=== PATIENT | male | born 1955 | race Caucasian/White ===

== ENCOUNTER 2016-10-04 16:26 | Inpatient (IN) | payer BC ==
[~2016-10-04] VITALS: Ht 188 cm; Wt 110.3 kg
[~2016-10-04 16:26] MED LIST: DIOV160T9 PO; METO50TA11 PO; TAMS5CAP PO
[2016-10-04 16:27] VITALS: BP 155/92; PULSE 105; RESP 20; TEMP 98.2; O2SAT 94
--- NOTE | 2016-10-04 16:31 | PD ---
Physical Exam Time Seen by Provider: 16:29 Narrative 61yo M sent by PCP to be admitted for alcohol withdrawal. Last drank Tuesday. +increased heart rate, sweating, jitteriness. Denies vomiting. Patient seen in triage. VS reviewed. Awaiting bed placement. Data Data Last Documented VS Vital Signs Date Time Temp Pulse Resp B/P Pulse Ox O2 Delivery O2 Flow Rate FiO2 10/04/16 16:27 98.2 105 20 155/92 94 Room Air MDM Supervised Visit with RITA: Simran Garcia Oct 04, 2016 16:31
[2016-10-04] MEDS ORDERED: SODIUM CHLOR 0.9% 1000 ML INJ 1,000 ML IV SCH (17:33)
--- NOTE | 2016-10-04 17:41 | PD ---
HPI Chief Complaint: Alcohol/Drug Intoxication Time Seen by Provider: 17:35 Travel History International Travel<30 days: No Contact w/Intl Traveler<30days: No Traveled to known affect area: No History of Present Illness HPI 61- year old male presents to the ED for detox. The patient reports that he drinks one quart of vodka daily, with his last drink two days ago. The patient reports he had diarrhea yesterday, but denies any nausea, vomiting, constipation , headaches, lightheadedness, blurry vision, auditory/visual hallucinations. He reports he has never tried to detox before. The patient denies any smoking or drug use. He denies any pain or suicidal ideation. Denies any pain. Patient went to see his doctor today who told to come here to get admitted and further evaluated. I did review the patient's medical record he was seen by one of the residents who recommended that he comes here to get evaluated. PFSH Social History Alcohol Use: Yes Tobacco Use: No Substance Use: No Allergies-Medications (Allergen,Severity, Reaction): Coded Allergies: Penicillin (Verified Adverse Reaction, Intermediate, Rash, 10/04/16) Uncoded Allergies: steroids (Allergy, Severe, Anaphylaxis, 08/07/12) Reported Meds & Prescriptions Reported Meds & Active Scripts Active Metoprolol Succinate ER 24 HR (Metoprolol Succinate) 50 Mg Tab 50 Mg PO DAILY Diovan Hct (Valsartan-Hydrochlorothiazide) 160-25 Mg Tab 2 Tab PO DAILY Flomax (Tamsulosin HCl) 0.4 Mg Cap 0.4 Mg PO HS Review of Systems General / Constitutional: No: Fever, Chills, Weight Gain, Weight Loss, Other Eyes: No: Diploplia, Blurred Vision, Photophobia, Drainage, Redness, Foreign Body Sensation, Pain, Tearing, Blind Spots, Visual changes, Blindness, Other HENT: No: Headaches, Vertigo, Lightheadedness, Sore Throat, Rhinitis, Rhinorrhea, Congestion, Nosebleed, Neck Stiffness, Neck Pain, Masses, Gingival Bleeding, Dental Difficulties, Ear Discharge, Earache, Other Cardiovascular: No: Chest Pain or Discomfort, Palpitations, Irregular Rhythm, Tachycardia, Diaphoresis, Syncope, Dyspnea on exertion, Varicosities, Edema, Cyanosis, Varicosities, Phlebitis, Claudication, Other Respiratory: No: Cough, Shortness of Breath, Wheezing, Sneezing, Orthopnea, Hemoptysis, Stridor, Night Sweats, Pleuritic Pain, Other Gastrointestinal: Positive: Diarrhea, No: Nausea, Vomiting, Abdominal Pain, Hematemesis, Hematochezia, Constipation, Changes in Bowel Habits, Indigestion, Dysphagia, Loss of Appetite, Other Genitourinary: No: Urgency, Frequency, Dysuria, Nocturia, Hematuria, Decreased Urinary Output, Oliguria, Hesitancy, Dribbling, Incontinence, Pelvic Pain, Flank Pain, Dyspareunia, Discharge, Dysmenorrhea, Menorrhagia, Metorrhagia, Vaginal Bleeding, Other Musculoskeletal: No: Myalgias, Arthralgias, Limited ROM, Weakness, Cramping, Edema, Pain, Atrophy, Other Skin: No Rash, No Itching, No Dryness, No Lumps, No Hives, No Change in Pigmentation, No Change in nails, No Alopecia, No Lesions, No Breast Lumps, No Breast Tenderness, No Breast Swelling, No Other Neurologic: No: Weakness, Dizziness, Syncope, Focal Abnormalities, Coordination Problem, Tremor, Ataxia, Headache, Change in Mentation, Slurred Speech, Paresthesia, Incontinence, Seizures, Sensory Disturbance, Other Psychiatric: Positive: Substance Abuse (Alcohol), No: Anxiety, Depression, Suicidal Ideations, Disorder of Thought, Mood Disorder, Homicidal Ideation, Other Endocrine: No: Heat Intolerance, Cold Intolerance, Polyuria, Polydipsia, Other Hematologic/Lymphatic: No: Easy Bruising, Lymph Node Enlargement, Other Physical Exam Narrative GENERAL: No acute distress. SKIN: Warm and dry. HEAD: Atraumatic. Normocephalic. EYES: Pupils equal and round. No scleral icterus. No injection or drainage. ENT: No nasal bleeding or discharge. Mucous membranes pink and moist. Tongue is midline, no uvula deviation. NECK: Trachea midline. No JVD. CARDIOVASCULAR: Regular rate and rhythm. No S3, S4, murmurs, rubs, gallops, or clicks. RESPIRATORY: No accessory muscle use. Clear to auscultation. Breath sounds equal bilaterally. GASTROINTESTINAL: Abdomen soft, non-tender, nondistended. Hepatic and splenic margins not palpable. MUSCULOSKELETAL: Extremities without clubbing, cyanosis, or edema. No obvious deformities. Full range of motion of the upper and lower extremities bilaterally. 2+ pulses bilaterally. Slight tremor noted on the upper extremities bilaterally. NEUROLOGICAL: Awake and alert. No obvious cranial nerve deficits. Motor grossly within normal limits. Five out of 5 muscle strength in the arms and legs. Normal speech. PSYCHIATRIC: Appropriate mood and affect; insight and judgment normal. Data Data Last Documented VS Vital Signs Date Time Temp Pulse Resp B/P Pulse Ox O2 Delivery O2 Flow Rate FiO2 10/04/16 16:27 98.2 105 20 155/92 94 Room Air Orders Complete Blood Count With Diff (10/04/16 17:29) Comprehensive Metabolic Panel (10/04/16 17:29) Magnesium (Mg) (10/04/16 17:29) Iv Access Insert/Monitor (10/04/16:29) Drug Screen, Random Urine (10/04/16:29) Alcohol (Ethanol) (10/04/16:29) Sodium Chlor 0.9% 1000 Ml Inj (Ns 1000 M (10/04/16 17:33) Alcohol Withdrawal Asmt-Ciwa ONCE (10/04/16 18:14) Ondansetron Inj (Zofran Inj) (10/04/16 18:15) Flumazenil Inj (Romazicon Inj) (10/04/16 18:15) Lorazepam (Ativan) (10/04/16 18:15) Lorazepam Inj (Ativan Inj) (10/04/16 18:15) Lorazepam (Ativan) (10/04/16 18:15) Lorazepam Inj (Ativan Inj) (10/04/16 18:15) Lorazepam Inj (Ativan Inj) (10/04/16 18:15) Lorazepam Inj (Ativan Inj) (10/04/16 18:15) Admit Order (Ed Use Only) (10/04/16 18:40) Urinalysis - C+S If Indicated (10/04/16 18:43) Lipase (10/04/16 18:43) Labs Laboratory Tests Test 10/04/16 10/04/16 17:50 18:05 White Blood Count 6.5 TH/MM3 Red Blood Count 4.67 MIL/MM3 Hemoglobin 16.2 GM/DL Hematocrit 46.1 % Mean Corpuscular Volume 98.6 FL Mean Corpuscular Hemoglobin 34.6 PG Mean Corpuscular Hemoglobin 35.1 % Concent Red Cell Distribution Width 13.4 % Platelet Count 106 TH/MM3 Mean Platelet Volume 7.5 FL Neutrophils (%) (Auto) 70.6 % Lymphocytes (%) (Auto) 17.6 % Monocytes (%) (Auto) 9.6 % Eosinophils (%) (Auto) 1.8 % Basophils (%) (Auto) 0.4 % Neutrophils # (Auto) 4.6 TH/MM3 Lymphocytes # (Auto) 1.1 TH/MM3 Monocytes # (Auto) 0.6 TH/MM3 Eosinophils # (Auto) 0.1 TH/MM3 Basophils # (Auto) 0.0 TH/MM3 CBC Comment DIFF FINAL Differential Comment Sodium Level 138 MEQ/L Potassium Level 3.1 MEQ/L Chloride Level 99 MEQ/L Carbon Dioxide Level 26.7 MEQ/L Anion Gap 12 MEQ/L Blood Urea Nitrogen 17 MG/DL Creatinine 1.24 MG/DL Estimat Glomerular Filtration 59 ML/MIN Rate Random Glucose 128 MG/DL Calcium Level 9.5 MG/DL Magnesium Level 1.4 MG/DL Total Bilirubin 2.4 MG/DL Aspartate Amino Transf 64 U/L (AST/SGOT) Alanine Aminotransferase 59 U/L (ALT/SGPT) Alkaline Phosphatase 44 U/L Total Protein 7.7 GM/DL Albumin 4.0 GM/DL Ethyl Alcohol Level LESS THAN 3 MG/DL Urine Opiates Screen NEG Urine Barbiturates Screen NEG Urine Amphetamines Screen NEG Urine Benzodiazepines Screen NEG Urine Cocaine Screen NEG Urine Cannabinoids Screen NEG MDM Medical Decision Making Medical Screen Exam Complete: Yes Emergency Medical Condition: Yes Medical Record Reviewed: Yes Interpretation(s) CBC & BMP Diagram 10/04/16 17:50 Differential Diagnosis Alcohol Withdrawal Chronic Alcoholism Dehydration Delirium [place] Tachycardia Narrative Course 61-year-old male that presents to the ED for evaluation of alcohol withdrawal. Patient was properly examined and was found to have signs and symptoms consistent with alcohol withdrawal. I reviewed the patient's medical records and she was actually seen by Dr. Gomes today and told to come here for possible admission. Labs were drawn. Case discussed with the resident's who agreed to admission. Patient agrees with this plan. Patient was admitted for acute alcohol withdrawal with DTs. Diagnosis Primary Impression: Alcohol withdrawal Qualified Code: F10.230 - Alcohol withdrawal syndrome without complication Admitting Information Admitting Physician Requests: Observation Freddie Doyle Oct 04, 2016 17:41
[2016-10-04] MEDS ORDERED: ONDANSETRON HCL 4 MG/2 ML VIAL IV PUSH PRN (18:15)
[2016-10-04] MEDS ORDERED: LORazepam 2 MG/ML VIAL IV PUSH PRN ×8 (18:15→19:00)
[2016-10-04] MEDS ORDERED: FLUMAZENIL 0.5 MG/5 ML VIAL IV PUSH PRN ×2 (18:15→19:00)
[2016-10-04] MEDS ORDERED: LORazepam 1 MG TAB PO PRN ×2 (18:15→19:00)
[2016-10-04] MEDS ORDERED: LORazepam 2 MG TAB PO PRN ×2 (18:15→19:00)
--- NOTE | 2016-10-04 18:28 | HHI.HP ---
[facility] Service Family Medicine Primary Care Physician Non-Staff Admission Diagnosis Diagnoses: International Travel<30 Days: No Contact w/Intl Traveler<30days: No Known Affected Area: No History of Present Illness 61 year old male is sent from the family medicine clinic by Dr. Awad. He stopped drinking alcohol on Tuesday. Before then, he was drinking vodka 1 quart per day. He quit drinking because he is fed up with the way it makes him feel the next day. He reports that drinking alcohol has not resulted in significant career or personal life problems. Since stopping, he has a racing heart, tremors, anxiety, mild agitation, and profuse sweating. He does not have hallucinations, confusion, headache, visual disturbances, tactile or auditory disturbances. He has diarrhea yesterday. He has no vomiting and is tolerating a normal diet. He has no fevers, unintentional weight loss, chest pain, shortness of breath, abdominal pain, nausea, vomiting, or calf tenderness. Also reports dark urine in the ED, slightly reddish appearance. Also found to have isolated thrombocytopenia on labs. Review of Systems Constitutional: COMPLAINS OF: Diaphoretic episodes, DENIES: Fatigue, Fever, Weight gain, Weight loss, Chills, Dizziness, Change in appetite Endocrine: DENIES: Polydipsia, Polyuria Eyes: DENIES: Blurred vision, Eye pain, Photosensitivity, Double Vision Ears, nose, mouth, throat: DENIES: Vertigo, Throat pain, Running Nose Respiratory: DENIES: Cough, Wheezing, Sputum production, Shortness of breath Cardiovascular: COMPLAINS OF: Palpitations, DENIES: Chest pain, Dyspnea on Exertion Gastrointestinal: COMPLAINS OF: Diarrhea, DENIES: Abdominal pain, Black stools , Bloody stools, Constipation, Nausea, Vomiting Genitourinary: DENIES: Urgency, Dysuria Musculoskeletal: DENIES: Joint pain, Back pain Integumentary: DENIES: Rash Hematologic/lymphatic: DENIES: Lymphadenopathy Immunologic/allergic: DENIES: Eczema Neurologic: COMPLAINS OF: Tremor, DENIES: Headache, Localized weakness, Paresthesias Psychiatric: DENIES: Anxiety, Confusion, Depression Past Family Social History Past Medical History Hypertension A. 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 Normocephalic. EYES: Pupils equal round and reactive. Extraocular motions intact. No scleral icterus. No injection or drainage. ENT: Nose without bleeding, purulent drainage or septal hematoma. Throat without erythema, tonsillar hypertrophy or exudate. Uvula midline. Airway patent. NECK: Trachea midline. No JVD or lymphadenopathy. Supple, nontender, no meningeal signs. CARDIOVASCULAR: Regular rate and rhythm, pulse in the 90's. RESPIRATORY: Clear to auscultation. Breath sounds equal bilaterally. No wheezes , rales, or rhonchi. GASTROINTESTINAL: Abdomen soft, non-tender, nondistended. No hepato-splenomegaly , or palpable masses. No guarding. MUSCULOSKELETAL: Extremities without clubbing, cyanosis, or edema. No joint tenderness, effusion, or edema noted. No calf tenderness. Negative Homans sign bilaterally. NEUROLOGICAL: Awake and alert. Cranial nerves II through XII intact. Motor and sensory grossly within normal limits. Five out of 5 muscle strength in all muscle groups. Normal speech. Septic Shock Reassessment Heart: Regular rate and rhythm Lungs: Clear Skin: Warm Capillary Refill: <2 seconds Assessment and Plan Assessment and Plan 61 year old male who abruptly quit drinking alcohol on Tuesday presents with alcohol withdrawals. Code Status FULL CODE Discussed Condition With Discussed with Dr. Sheriff Problem List: (1) Alcohol withdrawal syndrome Status: Acute Plan: History of quart of Vodka per night, last drink was last Tuesday. Now day 2 after quitting drinking. Committed to stop drinking. Currently with tremors, mild agitation, tachycardia. No hallucinations currently. No nausea or vomiting. Has diaphoresis and feels anxious. No headaches and no confusion. Relatively stable currently. - CIWA protocol, Ativan as needed - Multivitamin, folic acid, thiamine - Alcohol abuse counseling - Seizure precautions - teletypesetter monitor for acute withdrawals, electrolyte abnormalities (2) Hyperbilirubinemia Status: Acute Plan: Elevated bilirubin at 2.4 with dark urine present. Alkaline phosphatase not elevated. DDx: hepatitis, liver disease, biliary obstruction, hemolysis - Check urinalysis - Check conjugated/unconjugated bilirubin - LDH/haptoglobin to rule out hemolysis - Liver ultrasound to rule out liver/biliary pathology - Hepatitis profile - Can add AMA if etiology not clear after above (3) Thrombocytopenia Status: Acute Plan: Isolated thrombocytopenia with platelet count 106, possible liver defect , hepatitis C, HIV, myelodysplasia - Check peripheral smear, repeat CBC tomorrow (4) Hypertension Status: Chronic Plan: - Continue metoprolol 50 mg daily - Continue Valsartan/HCTZ from home - Clonidine PRN (5) No contraindication to deep vein thrombosis (DVT) prophylaxis Status: Acute Plan: - Lovenox 40 mg daily (6) Nutrition, metabolism, and development symptoms Status: Acute Plan: - Regular diet - Normal saline at maintenance - Potassium 3.1, replace and monitor Physician Certification 2 Midnight Certification Type: Admission for Inpatient Services Order for Inpatient Services The services are ordered in accordance with Medicare regulations or non- Medicare payer requirements, as applicable. In the case of services not specified as inpatient-only, they are appropriately provided as inpatient services in accordance with the 2-midnight benchmark. Estimated LOS (days): 3 days is the estimated time the patient will need to remain in the hospital, assuming treatment plan goals are met and no additional complications. Post-Hospital Plan: Home Ramon Finn MD R3 Oct 04, 2016 18:28 , hepatitis C, HIV, myelodysplasia - Check peripheral smear, repeat CBC tomorrow (4) Hypertension Status: Chronic Plan: - Continue metoprolol 50 mg daily - Continue Valsartan/HCTZ from home - Clonidine PRN (5) No contraindication to deep vein thrombosis (DVT) prophylaxis Status: Acute Plan: - Lovenox 40 mg daily (6) Nutrition, metabolism, and development symptoms Status: Acute Plan: - Regular diet - Normal saline at maintenance - Potassium 3.1, replace and monitor Physician Certification 2 Midnight Certification Type: Admission for Inpatient Services Order for Inpatient Services The services are ordered in accordance with Medicare regulations or non- Medicare payer requirements, as applicable. In the case of services not specified as inpatient-only, they are appropriately provided as inpatient services in accordance with the 2-midnight benchmark. Estimated LOS (days): 3 days is the estimated time the patient will need to remain in the hospital, assuming treatment plan goals are met and no additional complications. Post-Hospital Plan: Home Ramon Finn MD R3 Oct 04, 2016 18:28
[2016-10-04 18:30] LABS: AUTOMATED NEUTROPHIL # 4.6 TH/MM3 (1.8-7.7); BASOPHIL % 0.4 % (0.0-2.0); EOSINOPHIL # 0.1 TH/MM3 (0-0.4); EOSINOPHIL % 1.8 % (0.0-4.0); HEMATOCRIT 46.1 % (39.0-51.0); HEMO FLAGS DIFF FINAL; LYMPH % 17.6 % (9.0-44.0); LYMPHOCYTE # 1.1 TH/MM3 (1.0-4.8); MEAN CELL VOLUME 98.6 FL (80.0-100.0); MEAN CORPUSCULAR HEMOGLOBIN 34.6 PG (27.0-34.0); MEAN CORPUSCULAR HGB CONC 35.1 % (32.0-36.0); MONO % 9.6 % (0.0-8.0); NEUT % 70.6 % (16.0-70.0); PLATELET COUNT 106 TH/MM3 (150-450); RED BLOOD COUNT 4.67 MIL/MM3 (4.50-5.90); RED CELL DISTRIBUTION WIDTH 13.4 % (11.6-17.2); WHITE BLOOD COUNT 6.5 TH/MM3 (4.0-11.0)
[2016-10-04 18:31] LABS: ALKALINE PHOSPHATASE 44 U/L (45-117); ALT (GPT) 59 U/L (12-78); ANION GAP 12 MEQ/L (5-15); AST (GOT) 64 U/L (15-37); BICARBONATE 26.7 MEQ/L (21.0-32.0); BLOOD UREA NITROGEN 17 MG/DL (7-18); CHLORIDE 99 MEQ/L (98-107); GLOMERULAR FILTRATION RATE 59 ML/MIN (>89); MAGNESIUM 1.4 MG/DL (1.5-2.5); POTASSIUM 3.1 MEQ/L (3.5-5.1); SODIUM (NA) 138 MEQ/L (136-145); TOTAL BILIRUBIN ADULT 2.4 MG/DL (0.2-1.0)
[2016-10-04 18:43] LABS: ALCOHOL LESS THAN 3 MG/DL (0-5)
[2016-10-04] MEDS ORDERED: cloNIDine HCL 0.1 MG TAB PO PRN (19:00)
[2016-10-04] MEDS ORDERED: SODIUM CHLORIDE 0.9% FLUSH 10 ML FLUSH IV FLUSH PRN (19:00)
[2016-10-04] MEDS ORDERED: POTASSIUM CHLORIDE 20 MEQ CONTROLLED RELEASE TAB PO ONE (19:00)
[2016-10-04] MEDS ORDERED: ONDANSETRON HCL 4 MG/2 ML VIAL IV PRN (19:00)
[2016-10-04] MEDS: FOLIC ACID 1 MG TAB PO SCH (19:21)
[2016-10-04] MEDS: SODIUM CHLOR 0.9% 1000 ML INJ 1,000 ML IV SCH (19:21)
[2016-10-04] MEDS: THIAMINE HCL 100 MG TAB PO SCH (19:21)
[2016-10-04] MEDS: MULTIVITAMINS/MINERALS THERAPEUTIC TAB PO SCH (20:08)
[2016-10-04] MEDS: SODIUM CHLORIDE 0.9% FLUSH 10 ML FLUSH IV FLUSH SCH (21:00)
[2016-10-04] MEDS ORDERED: ENOXAPARIN SODIUM 40 MG/0.4 ML SYRINGE SQ SCH (21:00)
[2016-10-04] MEDS ORDERED: TAMSULOSIN HCL 0.4 MG CAP PO SCH (21:00)
[2016-10-04 21:24] LABS: TOTAL BILIRUBIN ADULT 2.4 MG/DL (0.2-1.0)
[2016-10-04 21:28] LABS: INDIRECT BILIRUBIN 1.8 MG/DL (0.0-0.8)
[2016-10-04 23:15] VITALS: BP 144/86; PULSE 93; RESP 18; TEMP 96.7; O2SAT 95
[2016-10-05 00:54] VITALS: PULSE 84
[2016-10-05 01:07] LABS: INTERNATIONAL NORMALIZED RATIO 1.2 RATIO; PROTHROMBIN TIME - PATIENT 13.1 SEC (9.8-11.6)
[2016-10-05 04:47] VITALS: BP 133/79; PULSE 88; RESP 18; TEMP 96.7; O2SAT 96
[2016-10-05] MEDS: THIAMINE HCL 100 MG TAB PO SCH (07:51)
[2016-10-05] MEDS: FOLIC ACID 1 MG TAB PO SCH (07:52)
[2016-10-05] MEDS: MULTIVITAMINS/MINERALS THERAPEUTIC TAB PO SCH (07:53)
[2016-10-05] MEDS: SODIUM CHLORIDE 0.9% FLUSH 10 ML FLUSH IV FLUSH SCH (07:55)
[2016-10-05] MEDS: SODIUM CHLOR 0.9% 1000 ML INJ 1,000 ML IV SCH ×2 (07:56)
[2016-10-05 08:00] VITALS: BP 149/89; PULSE 95; RESP 18; TEMP 96.4; O2SAT 95
--- NOTE | 2016-10-05 08:48 | HHI.FPPN ---
Subjective Remarks 61-year-old, comfortable. He denies any shaking, tremors, chest pain, sweating, hallucinations, irritability, or palpitations. He has been noticing some tachycardia at 80 bpm. Motivational interviewing: Patient has 100% confidence that he can quit. Previous attempts of quitting: Several months ago quit for 3 months, and lost 30 pounds. "I know that I can do it." Reasons for quitting: Has an 11-year-old son with cystic fibrosis. His health. Resources: Plans on quitting cold turkey. Has reached out to Alcoholics Anonymous previously, but was not able to contact them. Case management will provide him with resources to aid in his recovery. (Donald Arrington MD, R3) Objective Vitals Vital Signs Date Time Temp Pulse Resp B/P Pulse Ox O2 Delivery O2 Flow Rate FiO2 10/05/16 04:47 96.7 88 18 133/79 96 10/05/16 00:54 84 10/04/16 23:15 96.7 93 18 144/86 95 10/04/16 16:27 98.2 105 20 155/92 94 Room Air I/O 10/04/16 10/04/16 10/04/16 10/05/16 10/05/16 10/05/16 07:00 15:00 23:00 07:00 15:00 23:00 Intake Total 360 ml Balance 360 ml Intake Oral 360 ml # Voids 1 # Bowel Movements 0 (Donald Arrington MD, R3) Result Diagram: 10/04/16 1750 10/04/16 1750 Objective Remarks GENERAL: Well-nourished, well-developed patient. No acute distress. SKIN: Warm and dry. No rash. EYES: No scleral icterus. No injection or drainage. PERRLA. EOMI. HENT: Normocephalic. Atraumatic. MMM. NECK: No visible JVD or lymphadenopathy. CARDIOVASCULAR: Warm and well perfused. Regular rate and rhythm, faint 1/6 systolic ejection murmur. RESPIRATORY: Normal respiratory effort. Lungs clear to auscultation. GASTROINTESTINAL: Abdomen nondistended. Abdomen nontender to palpation. MUSCULOSKELETAL: Strength grossly WNL. BACK: Without obvious deformity. NEURO/PSYCH: Afocal. Awake, alert, and oriented x3. No tremor on exam, not diaphoretic, hyperactive bowel sounds. (Donald Arrington MD, R3) A/P Assessment and Plan 61 year old male who abruptly quit drinking alcohol on Tuesday presents with alcohol withdrawals. Discharge Planning Possible d/c today 10/05/16 if liver US wnl and platelets correcting. (Donald Arrington MD, R3) Attending Attestation Patient seen and examined. Case reviewed and discussed Agree with plan of care as discussed with me and documented in the resident note. (Amelia Wan MD) Problem List: (1) Alcohol withdrawal syndrome Status: Acute Plan: History of quart of Vodka per night, last drink was last Tuesday. Now day 3 after quitting drinking. Committed to stop drinking. No hallucinations currently. No nausea or vomiting. No headaches and no confusion. Relatively stable currently. - CIWA protocol, Ativan as needed - he is not needed and he Ativan during his hospitalization, CIWA scores were 4, 2, 0. - Multivitamin, folic acid, thiamine PO - Alcohol abuse counseling / FL as above - Seizure precautions (2) Hyperbilirubinemia Status: Acute Plan: Elevated bilirubin at 2.4 with dark urine present. Alkaline phosphatase not elevated. DDx: hepatitis, liver disease, biliary obstruction, hemolysis. - LDH/haptoglobin to rule out hemolysis within normal limits. - Liver ultrasound to rule out liver/biliary pathology pending. - Hepatitis profile is pending. Can follow-up with PCP regarding hepatitis serology. LFTs are also improving, and suggestive of chronic hepatitis <100, AST > ALT. Total bilirubin downtrending from 2.4-->2.1 since hospitalization. Indirect bilirubin greater than direct bilirubin; do not suspect any biliary obstruction. Suspect alcohol induced hepatic damage. (3) Thrombocytopenia Status: Acute Plan: Isolated thrombocytopenia with platelet count 106 on admission, possible liver defect, hepatitis C, HIV, myelodysplasia - Check peripheral smear is pending. - Platelets decreased from 103 --> 83. - Continue to monitor (4) Hypertension Status: Chronic Plan: - Continue metoprolol 50 mg daily - Continue Valsartan/HCTZ from home - Clonidine PRN (5) No contraindication to deep vein thrombosis (DVT) prophylaxis Status: Acute Plan: - Lovenox 40 mg daily (6) Nutrition, metabolism, and development symptoms Status: Acute Plan: - Regular diet - Normal saline at maintenance - transition to PO fluids. - Potassium 3.1, replace and monitor. Has received 40 mEq of potassium chloride 1. Remains hypokalemic at 3.0. (Donald Arrington MD, R3) Donald Arrington MD, R3 Oct 05, 2016 08:48 Amelia Wan MD Oct 13, 2016 16:28
[2016-10-05] MEDS ORDERED: HYDROCHLOROTHIAZIDE 25 MG TAB PO SCH (09:00)
[2016-10-05] MEDS ORDERED: VALSARTAN HYDROCHLOROTHIAZIDE PO SCH (09:00)
[2016-10-05] MEDS ORDERED: VALSARTAN 160 MG TAB PO SCH (09:00)
[2016-10-05] MEDS ORDERED: METOPROLOL SUCCINATE 50 MG EXTENDED RELEASE TAB PO SCH (09:00)
[2016-10-05 09:09] LABS: AUTOMATED NEUTROPHIL # 2.5 TH/MM3 (1.8-7.7); BASOPHIL % 0.5 % (0.0-2.0); EOSINOPHIL # 0.1 TH/MM3 (0-0.4); HEMATOCRIT 42.2 % (39.0-51.0); LYMPH % 25.5 % (9.0-44.0); LYMPHOCYTE # 1.1 TH/MM3 (1.0-4.8); MEAN CELL VOLUME 99.5 FL (80.0-100.0); MEAN CORPUSCULAR HEMOGLOBIN 34.4 PG (27.0-34.0); MEAN CORPUSCULAR HGB CONC 34.5 % (32.0-36.0); MONO % 12.4 % (0.0-8.0); NEUT % 58.6 % (16.0-70.0); PLATELET COUNT 83 TH/MM3 (150-450); RED BLOOD COUNT 4.25 MIL/MM3 (4.50-5.90); RED CELL DISTRIBUTION WIDTH 13.2 % (11.6-17.2); WHITE BLOOD COUNT 4.2 TH/MM3 (4.0-11.0)
[2016-10-05 09:13] LABS: HEMO FLAGS AUTO DIFF
[2016-10-05 09:47] LABS: ALKALINE PHOSPHATASE 38 U/L (45-117); ALT (GPT) 54 U/L (12-78); ANION GAP 10 MEQ/L (5-15); AST (GOT) 60 U/L (15-37); BICARBONATE 24.2 MEQ/L (21.0-32.0); BLOOD UREA NITROGEN 16 MG/DL (7-18); CHLORIDE 102 MEQ/L (98-107); GLOMERULAR FILTRATION RATE 89 ML/MIN (>89); MAGNESIUM 1.5 MG/DL (1.5-2.5); SODIUM (NA) 136 MEQ/L (136-145); TOTAL BILIRUBIN ADULT 2.1 MG/DL (0.2-1.0)
[2016-10-05 09:56] LABS: PLATELET ESTIMATE SMEAR LOW (NORMAL); PLATELET MORPHOLOGY NORMAL (NORMAL); SCAN/DIFF AUTO DIFF CONFIRMED
[2016-10-05] MEDS ORDERED: POTASSIUM CHLORIDE 10 MEQ CAP PO ONE (11:30)
[2016-10-05 12:00] VITALS: BP 152/93; PULSE 86; RESP 18; TEMP 95.2; O2SAT 96
--- NOTE | 2016-10-05 14:20 | PD.AMA ---
Against Medical Advice Note Diagnosis: (1) Benign essential hypertension (2) Alcohol withdrawal syndrome (3) Hyperbilirubinemia (4) Thrombocytopenia Discharge Disposition: Against Medical Advice Pt Condition on Discharge: Fair Recommended Treatment Course Recommend waiting for results of liver ultrasound prior to d/c. Patient left before hand. Also recommended case management support for out patient rehab programs. AMA Statement Patient Gray Faye has decided to leave the hospital against medical advice. This patient has the capacity to refuse care and understands the risks of leaving, including permanent disability and/or , and has had an opportunity to ask questions about his condition. The patient has been informed that he may return for care at any time, and follow up has been arranged/advised. Donald Arrington MD, R3 Oct 05, 2016 14:20
--- NOTE | 2016-10-05 14:38 | RADRPT ---
EXAM DATE/TIME: 10/05/2016 08:11 [facility] COMPARISON: No previous studies available for comparison. INDICATIONS : Hyperbilirubinemia. MEDICAL HISTORY : Diverticulitis. Renal calculi. Tremors. Palpitations. AFIB. HTN. Gout. UTI. ETOH abuse. SURGICAL HISTORY : Appendectomy. Vasectomy and reverse. ENCOUNTER: Initial ACUITY: 2 days PAIN SCORE: 0/10 LOCATION: Bilateral upper quadrant MEASUREMENTS: LIVER: 18.0 cm length COMMON DUCT: 4 mm RIGHT KIDNEY: 12.8 x 5.6 x 7.3 cm SPLEEN: 17.0 cm length FINDINGS: The liver is enlarged and demonstrates diffuse fatty infiltration. There is a cystic structure withi n the right lobe measuring 3.9 x 2.7 x 3.5cm. No solid hepatic mass is noted sonographically. No b iliary ductal dilatation is noted. There is hepatopetal flow within the portal vein. The common rafael e duct is normal in caliber and measures 4 mm. There are 5 mm stones within the gallbladder. There is no pericholecystic fluid or sonographic Cullen's sign. No wall thickening is noted. There is poo r visualization of the pancreas due to shadowing bowel gas. The spleen is enlarged. The right kidne y is unremarkable without solid mass or hydronephrosis. CONCLUSION: 1. Cholelithiasis. 2. Enlarged fatty liver. 3. 3.9 x 2.7 x 3.5 cm hepatic cyst within the right lobe. 4. Splenomegaly. Tony Frederick MD on October 05, 2016 at 10:07 Board Certified Radiologist. This report was verified electronically.
[2016-12-14] MEDS ORDERED: DIOV160T9 PO (08:37)
[2016-12-14] MEDS ORDERED: METO50TA11 PO (08:37)
== END 2016-10-05 14:17 | disposition left against medical advice (07) | DRG 894 ==
LOC: NEPE 16:26 → NEDA 18:41 → OBSVTOIN 18:59 → N06A 23:34 → UNDODISOB 10-05 14:12
PROVIDERS: ADMIT Family Medicine; ATTEND Family Medicine
DX: F10.231 Alcohol dependence with withdrawal delirium (principal); D69.6 Thrombocytopenia, unspecified; E87.6 Hypokalemia; E86.0 Dehydration; E80.6 Other disorders of bilirubin metabolism; I10 Essential (primary) hypertension
CPT/HCPCS: 76705; 80053; 80074; 80307; 82247; 82248; 83010; 83615; 83690; 83735; 84100; 85025; 85060; 85610; 96360; J1650; J7030